=== PATIENT | female | born 1945 | race American Indian/Alaskan Native ===

== ENCOUNTER 2018-02-20 11:48 | Day surgery (SDC) | payer MEDICARE ==
[~2018-02-20 11:48] MED LIST: Acetaminophen TAB* 325 MG PO PRN; Buffered Lidocaine 0.9% SYRIN* 5 ML/SYR SYRINGE INTRADERM ONE
[2018-02-20] MEDS ORDERED: Lidocaine 1%* 5 ML VIAL ONE (13:07)
[2018-02-20] MEDS ORDERED: Lidocaine 2% EPI 1:200000 MPF*10-20 ML VIAL ONE (13:07)
[2018-02-20] MEDS ORDERED: Cyclopentolate 1% OPTH.SOL* 2 ML BTL ONE (13:07)
[2018-02-20] MEDS ORDERED: acetaZOLAMIDE TAB* 250 MG ONE (13:07)
[2018-02-20] MEDS ORDERED: Povidone Iodine 5% OPTH* 30 ML BTL ONE (13:07)
[2018-02-20] MEDS ORDERED: Neomycin/Polymy/Dex OPTH.SUSP* MAXITROL 0.1% 5 ML ONE (13:07)
[2018-02-20] MEDS ORDERED: Phenylephrine 2.5% OPTH.SOL* 2 ML BTL ONE (13:07)
[2018-02-20] MEDS ORDERED: Ketorolac 0.5% OPHTH (NF) 0.5 % 5 ML BTL ONE (13:07)
[2018-02-20] MEDS ORDERED: Proparacaine 0.5% OPHTH.SOL* 15 ML BTL ONE (13:08)
[2018-02-20] MEDS ORDERED: Midazolam* 1 MG/ML 2 ML VIAL (2 MG) ONE (14:04)
[2018-02-20 15:02] VITALS: BP 152/71
--- NOTE | 2018-02-21 12:31 | OP ---
DATE OF OPERATION: 02/20/18 - [facility] DATE OF : 45 SURGEON: Tushar Rice M.D. PREOPERATIVE DIAGNOSIS: Cataract, right eye. POSTOPERATIVE DIAGNOSIS: Cataract, right eye. OPERATIVE PROCEDURE: Extracapsular cataract extraction with intraocular lens implant and CTR, right eye. DESCRIPTION OF PROCEDURE: The patient was brought to the operating room after being given 1/2% Alcaine with epinephrine drops in the preoperative area. The eye was prepped and draped in the usual sterile fashion. Sterile drape and eyelid speculum were placed. Again, topical 1/2% Alcaine with epinephrine was given. A paracentesis incision was made at the 9 o'clock position with the No.75 blade. Clear cornea incision 2.2 x 2.2-mm was created at the 12 o'clock position starting at the anterior limbus using the 2.2-mm keratome. The anterior chamber was irrigated with 0.4 mL of 1% non-preservative intracameral lidocaine and filled with DisCoVisc. A capsulorrhexis was completed using the cystotome and the Utrata forceps. Hydrodissection was performed with balanced salt solution. The lens nucleus was removed with the Phacoemulsification handpiece without incident. Cortex was removed with the irrigation-aspiration handpiece. The capsular bag was re-inflated using DisCoVisc and an SN60WF 24.5 implant was inserted with the shooter followed by a capsular tension ring, ACTR- 10, inserted with its shooter. The irrigation-aspiration handpiece was used to remove all residual DisCoVisc. The eye was refilled with balanced salt solution and the wound checked and found to be watertight. Topical Maxitrol drops were given. Indication for complex cataract surgery: Status post vitrectomy requiring capsular tension ring device. [id number]/[facility] #: [id number] [facility]
== END 2018-02-20 15:07 | disposition home or self-care (01) ==
LOC: OREAST 11:48
PROVIDERS: ATTEND Specialist
DX: H25.811 Combined forms of age-related cataract, right eye (principal); H35.341 Macular cyst, hole, or pseudohole, right eye; H50.111 Monocular exotropia, right eye; Z72.0 Tobacco use; Z95.5 Presence of coronary angioplasty implant and graft; I10 Essential (primary) hypertension; I25.10 Atherosclerotic heart disease of native coronary artery without angina pectoris; J44.9 Chronic obstructive pulmonary disease, unspecified; F41.9 Anxiety disorder, unspecified
CPT/HCPCS: A9270-GY; J2250; V2632

== ENCOUNTER 2018-10-30 09:51 | Day surgery (SDC) | payer MEDICARE ==
[~2018-10-30 09:51] MED LIST changes: -Buffered Lidocaine 0.9% SYRIN* 5 ML/SYR SYRINGE INTRADERM ONE; +Buffered Lidocaine 1% SYRIN* 1 ML/SYRINGE INTRADERM ONE
[2018-10-30] MEDS ORDERED: Lidocaine 2% PF * 5 ML VIAL ONE (11:43)
[2018-10-30] MEDS ORDERED: Propofol* 10 MG/ML 20 ML BTL ONE (11:43)
[2018-10-30] MEDS ORDERED: Lidocaine 1%* 5 ML VIAL ONE (12:16)
[2018-10-30] MEDS ORDERED: Neomycin/Polymy/Dex OPTH.SUSP* MAXITROL 0.1% 5 ML ONE (12:16)
[2018-10-30] MEDS ORDERED: Lidocaine 2% EPI 1:200000 MPF*10-20 ML VIAL ONE (12:16)
[2018-10-30] MEDS ORDERED: Proparacaine 0.5% OPHTH.SOL* 15 ML BTL ONE (12:16)
[2018-10-30] MEDS ORDERED: Ketorolac 0.5% OPHTH (NF) 0.5 % 5 ML BTL ONE (12:16)
[2018-10-30] MEDS ORDERED: Povidone Iodine 5% OPTH* 30 ML BTL ONE (12:16)
[2018-10-30] MEDS ORDERED: Cyclopentolate 1% OPTH.SOL* 2 ML BTL ONE (12:16)
[2018-10-30] MEDS ORDERED: Phenylephrine OPHTH SOL 2.5%* 2 ML ONE (12:16)
[2018-10-30] MEDS ORDERED: acetaZOLAMIDE TAB* 250 MG ONE (12:16)
[2018-10-30 12:33] VITALS: BP 153/64
--- NOTE | 2018-10-30 12:37 | OP ---
OPERATIVE NOTE: DATE OF OPERATION: 10/30/18 DATE OF : 45 SURGEON: Tushar Rice M.D. PREOPERATIVE DIAGNOSIS: Cataract, left eye. POSTOPERATIVE DIAGNOSIS: Cataract, left eye. OPERATIVE PROCEDURE: Extracapsular cataract extraction with intraocular lens implant left eye. PROCEDURE: The patient was brought to the operating room after being given 1/2% Alcaine with epineph rine drops in the preoperative area. The eye was prepped and draped in the usual sterile fashion. S terile drape and eyelid speculum were placed. Again, topical 1/2% Alcaine with epinephrine was given . A paracentesis incision was made at the 3 o'clock position with the No.75 blade. Clear cornea inc ision 2.2 x 2.2-mm was created at the 6 o'clock position starting at the anterior limbus using the 2. 2-mm keratome. The anterior chamber was irrigated with 0.4 mL of 1% non-preservative intracameral li docaine and filled with DisCoVisc. A capsulorrhexis was completed using the cystotome and the Utrata forceps. Hydrodissection was performed with balanced salt solution. The lens nucleus was removed wi th the Phacoemulsification handpiece without incident. Cortex was removed with the irrigation-aspira tion handpiece. The capsular bag was re-inflated using DisCoVisc and an SN60WF 24 implant was insert ed with the shooter. The irrigation-aspiration handpiece was used to remove all residual DisCoVisc. The eye was refilled with balanced salt solution and the wound checked and found to be watertight. Topical Maxitrol drops were given. [id number]/[facility] #: [id number]
== END 2018-10-30 12:42 | disposition home or self-care (01) ==
LOC: OREAST 09:51
PROVIDERS: ATTEND Specialist
DX: H25.812 Combined forms of age-related cataract, left eye (principal); H50.111 Monocular exotropia, right eye; H35.341 Macular cyst, hole, or pseudohole, right eye; Z88.8 Allergy status to other drugs, medicaments and biological substances; F17.210 Nicotine dependence, cigarettes, uncomplicated; I65.29 Occlusion and stenosis of unspecified carotid artery; I25.10 Atherosclerotic heart disease of native coronary artery without angina pectoris; E78.5 Hyperlipidemia, unspecified; Z79.01 Long term (current) use of anticoagulants; F41.9 Anxiety disorder, unspecified
CPT/HCPCS: A9270-GY; J2704; V2632

== ENCOUNTER 2018-11-24 12:19 | Emergency (ER) | payer MEDICARE ==
--- OUTSIDE RECORDS SUMMARY | 2018-11-24 12:32 | XMS REPORT | Continuity of Care Document ---
:1945 External Reference #:[id number] Author Name Carrol Patel O.D. Address [address] [place] [address] Care Team Providers Name Role Phone Jacob Walsh M.D. Primary Care Physician Unavailable Payers Date Identification Numbers Payment Provider Subscriber Policy Number: [id number] Medicare - [facility] Dana Martínez PayID: [id number] [address] [place] [address] Policy Number: [id number] [facility] Dana Martínez PayID: [id number] [address] [place] [address] Problems Active Problems Provider Date Placement of stent in coronary artery Onset: Combined form of senile cataract Tushar Rice M.D. Onset: 01/03/2018 Degeneration of macula due to cyst, hole or Tushar Rice M.D. Onset: 01/2018 pseudohole Monocular exotropia Tushar Rice M.D. Onset: 01/03/2018 Presence of intraocular lens Tushar Rice M.D. 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 0.5% Solution times a day, taper as directed Prednisolone Acetate 1 drops left eye 10ml Tushar Rice, 10/17/2018 1% one times a day. M.D. Suspension taper as directed Sertraline HCL [place],Jacob 100mg M.D. Tablets Ranitidine HCL [place],Jacob 150mg M.D. Tablets Metoprolol Succinate [place],Jacob ER M.D. 25mg Tablets ER 24HR Simvastatin [place],Jacob 40mg Tablets M.D. Alprazolam Unknown 0.25mg Tablets Aspirin Low Dose Unknown 81mg Chewtabs Hydrocodone-Acetaminop prn Unknown hen 5-325mg Tablets History Medications Ciprofloxacin HCL instill one drop 10ml Tushar Rice, 10/17/2018 - 0.3% in the left eye M.D. 11/12/2018 Solution three times a day, start the day before surgery Vigamox one drop right eye 3ml Tushar Rice, 01/25/2018 - Unknown 0.5% Solution three times a day, M.D. start the day before surgery Ketorolac Tromethamine 1 drop right eye 10ml Tushar Rice, 01/25/2018 - 0.5% daily M.D. 10/14/2018 Solution Prednisolone Acetate 1 drop right eye 15ml Tushar Rice, 01/25/2018 - 1% daily M.D. 10/14/2018 Suspension Mirtazapine Jacob Walsh - Unknown 30mg Tablets M.D. Procedures Date Code Description Status 10/30/2018 97836 Extracapsular Cataract Extraction W/Intraocular Lens Completed 10/17/2018 16816 Ophthalmic Biometry Completed 10/17/2018 60025 Scanning Computerized Opthalmic Diagnostic Posterior Seg Completed Retina 10/17/2018 15890 Est Patient Intermediate Exam Completed 10/15/2018 99615 Est Patient Comprehensive Exam Completed 02/20/2018 08999 Cataract Surgery Complex Completed 01/25/2018 23069 Ophthalmic Biometry Completed 01/25/2018 67561 Ophthalmic Biometry Completed 01/25/2018 43473 Scanning Computerized Opthalmic Diagnostic Posterior Seg Completed Retina 01/25/2018 88761 Est Patient Intermediate Exam Completed 01/03/2018 91760 New Patient Comprehensive Exam Completed Plan of Treatment 11/13/2018 - Carrol Patel O.D.Z96.1 Presence of intraocular lensComments:The artificial lens implant in your left eye appears to be stable at this time.Follow up:1 year OCT mac You can expect to have your eyes dilated at your next visit. If Dr. Patel orders any additional testing, it may require extra time. We recommend that you bring sunglasses, as dilation drops often make you light sensitive until they wear off. We always recommend you bring someone to drive you home if you are uncomfortable driving with your eyes dilated. If you have any questions before your next visit, feel free to call our office at .A40.111 Monocular exotropia, right eyeComments:Smoking can increase the risk of developing or worsening any eye related disease, as well as affect your overall health. If you are a smoker, we strongly recommend that you quit.If you are not a smoker, we strongly recommend that you do not start.
--- OUTSIDE RECORDS SUMMARY | 2018-11-24 12:32 | XMS REPORT | Continuity of Care Document ---
:1945 External Reference #:[id number] Author Name Jorge Luis Everettley Care Team Providers Name Role Phone Jacob Walsh M.D. 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 [employer] Work Status Retired ETOH Use Denies alcohol use Tobacco Use Start: Unknown Light tobacco smoker (10 or fewer cigarettes/day) Smoking Status Reviewed: 10/31/18 Light tobacco smoker (10 or fewer cigarettes/day) Allergies, Adverse Reactions, Alerts Active Allergies Reaction Severity Comments Date Amoxicillin 01/03/2018 Medications Active Medications SIG Qnty Indications Ordering Provider Date Ciprofloxacin HCL instill one drop 10ml Tushar Rice, 10/17/2018 0.3% in the left eye M.DJake Solution three times a day, start the day before surgery Ketorolac Tromethamine use one drop in 10ml Tushar Mcclendoncontreras, 10/17/2018 0.5% the left eye M.D. Solution three times a day, start the day before surgery Prednisolone Acetate 1 drops left eye 10ml Tushar Mcclendoncontreras, 10/17/2018 1% three times a M.D. Suspension day. taper as directed Sertraline HCL [place],Jacob 100mg M.D. Tablets Ranitidine HCL [place],Jacob 150mg M.D. Tablets Metoprolol Succinate ER [place],Jacob M.D. 25mg Tablets ER 24HR Simvastatin [place]ro[place],Jacob 40mg Tablets M.D. Alprazolam Unknown 0.25mg Tablets Aspirin Low Dose Unknown 81mg Chewtabs Hydrocodone-Acetaminoph prn Unknown en 5-325mg Tablets History Medications Vigamox one drop right eye 3ml Tushar McgregorJake Rice, 01/25/2018 - Unknown 0.5% Solution three times a day, M.D. start the day before surgery Ketorolac Tromethamine 1 drop right eye 10ml Tushar McgregorJake Rice, 01/25/2018 - 0.5% daily M.D. 10/14/2018 Solution Prednisolone Acetate 1 drop right eye 15ml Tushar Mcclendoncontreras, 01/25/2018 - 1% daily M.D. 10/14/2018 Suspension Mirtazapine Jacob Walsh - Unknown 30mg Tablets M.D. Procedures Date Code Description Status 10/30/2018 67604 Extracapsular Cataract Extraction W/Intraocular Lens Completed 10/17/2018 50762 Ophthalmic Biometry Completed 10/17/2018 12362 Scanning Computerized Opthalmic Diagnostic Posterior Seg Completed Retina 10/17/2018 03480 Est Patient Intermediate Exam Completed 10/15/2018 07585 Est Patient Comprehensive Exam Completed 02/20/2018 51142 Cataract Surgery Complex Completed 01/25/2018 46851 Ophthalmic Biometry Completed 01/25/2018 23841 Ophthalmic Biometry Completed 01/25/2018 53887 Scanning Computerized Opthalmic Diagnostic Posterior Seg Completed Retina 01/25/2018 87019 Est Patient Intermediate Exam Completed 01/03/2018 80208 New Patient Comprehensive Exam Completed Plan of Treatment Future Appointment(s):11/13/2018 11:30 am - Carrol Patel O.D. at Tushar Rice MD, pc10/31/2018 - Tushar Rice M.D.Z96.1 Presence of intraocular lensComments:Smoking can increase the risk of developing or worsening any eye related disease, as well as affect your overall health. If you are a smoker, we strongly recommend that you quit.If you are not a smoker, we strongly recommend that you do not start. The artifical lens implant in your left eye appears to be stable. Since this is the first day after surgery, your left eye is still dilated and the vision will still be slightly blurry. The dilation will go down over the next day or two. Continue taking your eye drops as directed on the surgical calendar. If you have any questions, please call our office.H50.111 Monocular exotropia, right eyeH35.341 Macular cyst, hole, or pseudohole, right eyeFollow up:MAY RA OCT MAC You can expect to have your eyes dilated at your next visit. If Dr. Rice orders anyadditional testing, it may require extra time. We recommend that you bring sunglasses, as dilation drops often make you light sensitive until they wear off. We always recommend you bring someone to drive you home if you are uncomfortable driving with your eyes dilated. If you have any questions beforeyour next visit, feel free to call our office at .
[2018-11-24 19:25] VITALS: BP 142/57
--- NOTE | 2018-11-25 07:07 | ED ---
Bite Injury/Animal - HPI Summary HPI Summary: Patient is a 73-year-old female who presents to the ED with a cat bite to the left wrist. The cat is her own and is vaccinated and up-to-date. She states "we play rough." She states this has happened several times in the past, however the area has not ever become infected. This occurred 2 days ago and yesterday she developed erythema and warmth to the dorsum of the wrist. This area is approximately 5 cm in length and 4 cm in width. She denies any fevers, sweats, chills. She denies any difficulty with range of motion of the left wrist. Denies any numbness or tingling in the fingertips. She states she is otherwise healthy and is allergic to amoxicillin. - History of Current Complaint Chief Complaint: EDAnimalBite Stated Complaint: CAT BITE Time Seen by Provider: 11/24/18 12:42 Hx Obtained From: Patient Onset of Injury: Happened days ago Type of Bite: Animal Hx of Bite: Provoked by: - playing Severity Initially: Mild Severity Currently: Mild Pain Intensity: 0 Pain Scale Used: 0-10 Numeric Character: Puncture Aggravating Factor(s): Nothing Alleviating Factor(s): Nothing Associated Signs And Symptoms: Positive: Erythema, Drainage Animal Available for Observation: Yes Animal Control Notified: No - Risk Factors Infection/Sepsis Risk Factors: Negative - Allergies/Home Medications Allergies/Adverse Reactions: Allergies Allergy/AdvReac Type Severity Reaction Status Date / Time amoxicillin Allergy Severe Rash Verified 10/28/18 16:06 PMH/Surg Hx/FS Hx/Imm Hx Previously Healthy: Yes Cardiovascular History: Reports: Hx Coronary Artery Disease - STENT PLACE 5-6 years ago, Hx Hypertension - ON MEDICATION FOR Denies: Other Cardiovascular Problems/Disorders Respiratory History: Denies: Other Respiratory Problems/Disorders GI History: Reports: Hx Gastroesophageal Reflux Disease - ON MEDICATION FOR, Other GI Disorders - HX OF DIVERTICULOSIS AND DIVERTICULITIS History: Denies: Other Problems/Disorders Musculoskeletal History: Reports: Hx Arthritis - knuckles, hips Denies: Other Musculoskeletal History Sensory History: Reports: Hx Cataracts - left eye, Hx Contacts or Glasses - glasses, Hx Glaucoma Denies: Hx Hearing Aid Opthamlomology History: Reports: Hx Cataracts - left eye, Hx Contacts or Glasses - glasses, Hx Glaucoma Neurological History: Denies: Other Neuro Impairments/Disorders Psychiatric History: Reports: Hx Anxiety - PRN MEDICATION FOR, Hx Depression - ROUTINE MEDICATION FOR - Cancer History Hx Chemotherapy: No - Surgical History Surgical History: None Surgery Procedure, Year, and Place: carotid artery cleaned out in [facility]. macular hole repaired [place]. stent in heart in [place]. macular shunt to the right eye Hx Anesthesia Reactions: Yes - after carotid surgery- severe shakes and slept 8 hours-reports low toleranc - Immunization History Date of Tetanus Vaccine: Not UTD Hx Pertussis Vaccination: No Immunizations Up to Date: Yes Infectious Disease History: Yes Infectious Disease History: Denies: Traveled Outside the [place] in Last 30 Days - Social History Occupation: Unemployed Lives: Alone Alcohol Use: None Hx Substance Use: No Substance Use Type: Reports: None Hx Tobacco Use: Yes Smoking Status (MU): Light Every Day Tobacco Smoker Amount Used/How Often: 8 cigarettes a day, smoked for almost 50 years Have You Smoked in the Last Year: No Review of Systems Negative: Fever, Chills, Fatigue, Skin Diaphoresis Negative: Palpitations, Chest Pain Negative: Shortness Of Breath, Cough Genitourinary: Negative Positive: no symptoms reported, see HPI Negative: Arthralgia, Myalgia Positive: Other - erythematous warm area to the dorsum of the L wrist Neurological: Negative All Other Systems Reviewed And Are Negative: Yes Physical Exam Triage Information Reviewed: Yes Vital Signs On Initial Exam: Initial Vitals Temp Pulse Resp BP Pulse Ox 98.1 F 60 18 152/115 96 11/24/18 12:20 11/24/18 12:20 11/24/18 12:20 11/24/18 12:20 11/24/18 12:20 Vital Signs Reviewed: Yes Appearance: Positive: Well-Appearing, Well-Nourished Skin: Positive: Warm, Skin Color Reflects Adequate Perfusion, Other - erythema and warmth dorsum of the L wrist with small puncture wound in center Eyes: Positive: EOMI, Conjunctiva Clear Neck: Positive: Supple Respiratory/Lung Sounds: Positive: Clear to Auscultation, Breath Sounds Present Cardiovascular: Positive: RRR, Pulses are Symmetrical in both Upper and Lower Extremities Musculoskeletal: Positive: Pain @ - left wrist Neurological: Positive: Speech Normal Psychiatric: Positive: Affect/Mood Appropriate AVPU Assessment: Alert Diagnostics - Vital Signs Vital Signs Temp Pulse Resp BP Pulse Ox 11/24/18 14:29 97.4 F 53 18 142/57 97 11/24/18 12:20 98.1 F 60 18 152/115 96 - Laboratory Lab Statement: Any lab studies that have been ordered have been reviewed, and results considered in the medical decision making process. Bite Injury Course/Dx - Course Course Of Treatment: On physical examination, there is a 5 x 4 erythematous warm area to the dorsum of the wrist secondary to a cat bite 2 days ago. Denies any pain to the hand directly over the wrist or into the fingertips. Denies any pain to the elbow. She denies any difficulty with range of motion. Patient is allergic to amoxicillin. She is otherwise healthy. Vital signs are stable on arrival and she has been denying any fevers, sweats, chills of the past 2 days. She will be given doxycycline 100 mg twice daily 5 days. Warm soaks to the area. She understands return precautions and voices no other concerns at this time. - Diagnoses Differential Diagnosis/HQI/PQRI: Positive: Cellulitis, Puncture Provider Diagnosis: Cellulitis, Cat bite Discharge - Sign-Out/Discharge Documenting (check all that apply): Patient Departure Patient Received Moderate/Deep Sedation with Procedure: No - Discharge Plan Condition: Stable Disposition: HOME Prescriptions: DOXYcycline CAP(*) [DOXYcycline 100MG CAP(*)] 100 mg PO BID #10 cap Patient Education Materials: Animal Bite (ED) Referrals: Jacob Walsh MD [Primary Care Provider] - Additional Instructions: Warm soaks to the area Doxycycline twice daily x 5 days Follow up with PCP if symptoms worsen Tylenol 650mg three times daily for pain - Billing Disposition and Condition Condition: STABLE Disposition: Home
== END 2018-11-24 14:29 | disposition home or self-care (01) ==
LOC: ED 12:19
DX: S61.552A Open bite of left wrist, initial encounter (principal); L03.114 Cellulitis of left upper limb; W55.01XA Bitten by cat, initial encounter; I25.10 Atherosclerotic heart disease of native coronary artery without angina pectoris; I10 Essential (primary) hypertension; F17.210 Nicotine dependence, cigarettes, uncomplicated; Z79.899 Other long term (current) drug therapy; Z88.1 Allergy status to other antibiotic agents
CPT/HCPCS: 99282